=== PATIENT | female | born 1960 | race African-American/Black ===

== ENCOUNTER 2019-01-28 17:01 | Emergency (ER) | payer MEDICAID ==
[~2019-01-28] VITALS: Ht 175.3 cm; Wt 64.0 kg
[2019-01-28 19:37] VITALS: BP 123/82
== END 2019-01-28 19:54 | disposition left against medical advice (07) ==
LOC: ER 17:01
DX: R07.9 Chest pain, unspecified (principal); F17.200 Nicotine dependence, unspecified, uncomplicated
CPT/HCPCS: 93005; 99283; Z7610